=== PATIENT | male | born 1995 | race African-American/Black ===

== ENCOUNTER 2022-11-01 22:15 | Emergency (ER) | payer BC ==
[~2022-11-01] VITALS: Ht 188 cm; Wt 159.1 kg
[2022-11-01 22:25] VITALS: BP 161/95
[2022-11-02] MEDS ORDERED: acetaminophen 325mg tablet PO ONE (01:55)
[2022-11-02] MEDS ORDERED: normal saline 1000ml 1,000 ML IV ONE (01:55)
[2022-11-02] MEDS ORDERED: ketorolac trometh. 30mg/ml inj. IV ONE (01:55)
[2022-11-02] MEDS ORDERED: proCHLORperazine 10 MG/2 ml inj IV ONE (01:55)
[2022-11-02] MEDS ORDERED: haloperidol lactate 5mg/ml inj IM ONE (02:40)
[2022-11-02] MEDS ORDERED: SUMAtriptan succ. 6 MG/0.5ml vial SQ ONE (02:40)
[2022-11-02] MEDS ORDERED: aspirin 325mg tablet PO ONE (03:45)
[2022-11-02] MEDS ORDERED: magnesium 2GM in 50ml NS 50 ML IV ONE (03:45)
[2022-11-02] MEDS ORDERED: diphenhydrAMINE 50 mg/ml inj IV ONE (03:45)
[2022-11-02] MEDS ORDERED: ACET-812 PO (05:19)
[2022-11-02] MEDS ORDERED: PROC-8 PO (05:19)
== END 2022-11-02 06:05 | disposition home or self-care (01) ==
LOC: ER 22:16
DX: R51.9 Headache, unspecified (principal)
CPT/HCPCS: 96361; 96365; 96366; 96372; 96375; 99284; J0780; J1200; J1630; J1885; J3030; J3475; J7030